=== PATIENT | female | born 1950 | race Caucasian/White ===

== ENCOUNTER 2017-05-28 10:05 | Emergency (ER) | payer MEDICARE, OTHER ==
--- NOTE | 2017-05-28 10:25 | ER Document Report ---
ED General - General Chief Complaint: Headache Stated Complaint: BLOOD PRESSURE ISSUE, VOMITING, SWEATING Time Seen by Provider: 05/28/17 10:25 Mode of Arrival: Ambulatory Information source: Patient Notes: 67-year-old female with a history of migraines has not had a headache this bad for a while. She got a gradual onset of a 2/5 headache while she was at her daughter's house in [place] yesterday which Tylenol resolved it and she went to bed at 10:00. This morning she woke up at 4:00 to go to the bathroom and the headache was 2/5 in by 7 AM the headache was 5/5 and she had to sit in the bathroom floor due to nausea sweating and she vomited. The headache is bandlike around the top of her head but she also feels in the posterior occipital which is the first place it started Tuesday afternoon. No recent illness, no chest pain, no shortness of breath, no abdominal pain, no dysuria, no fever. She has a history of rheumatoid arthritis, hypertension, total thyroidectomy, chronic back pain with recent procedure causing left leg nerve pain and she now takes Neurontin for that. PCP is Dr. Jamil in [place]. TRAVEL OUTSIDE OF THE [place] IN LAST 30 DAYS: No - Related Data Allergies/Adverse Reactions: codeine [Codeine] Allergy (Verified 05/28/17 10:31) Iodinated Contrast- Oral and IV Dye [IV Dye, Iodine Containing] Allergy ( Verified 05/28/17 10:31) nitroglycerin Allergy (Verified 05/28/17 10:31) terbinafine HCl [From Lamisil] Allergy (Verified 05/28/17 10:31) vicry sutures Allergy (Uncoded 05/28/17 10:31) Past Medical History - General Information source: Patient Last Menstrual Period: hyst - Social History Smoking Status: Never Smoker Frequency of alcohol use: None Drug Abuse: None Lives with: Family Family History: Reviewed & Not Pertinent - Past Medical History Cardiac Medical History: Reports: Hx Hypertension Neurological Medical History: Reports: Hx Migraine. Denies: Hx Seizures Malignancy Medical History: Reports: Hx Colorectal Cancer GI Medical History: Reports: Hx Gastroesophageal Reflux Disease Musculoskeltal Medical History: Reports Hx Arthritis Psychiatric Medical History: Reports: Hx Depression - since December of Son Past Surgical History: Reports: Hx Bowel Surgery, Hx Hysterectomy, Hx Orthopedic Surgery, Hx Thyroid Surgery Review of Systems - Review of Systems Constitutional: No symptoms reported EENT: No symptoms reported Cardiovascular: No symptoms reported Respiratory: No symptoms reported Gastrointestinal: See HPI Genitourinary: No symptoms reported Female Genitourinary: No symptoms reported Musculoskeletal: No symptoms reported Skin: No symptoms reported Hematologic/Lymphatic: No symptoms reported Neurological/Psychological: See HPI Physical Exam - Vital signs Vitals: Temp Pulse Resp BP Pulse Ox 97.4 F 65 16 143/89 H 96 05/28/17 10:19 05/28/17 10:19 05/28/17 10:19 05/28/17 10:19 05/28/17 10:19 Interpretation: Normal - General General appearance: Appears well, Alert - HEENT Head: Normocephalic, Atraumatic Eyes: Normal Conjunctiva: Normal Pupils: PERRL Pharynx: Normal Neck: Supple. No: Lymphadenopathy - Respiratory Respiratory status: No respiratory distress Chest status: Nontender Breath sounds: Normal Chest palpation: Normal - Cardiovascular Rhythm: Regular Heart sounds: Normal auscultation Murmur: No - Abdominal Inspection: Normal Distension: No distension Bowel sounds: Normal Tenderness: Nontender Organomegaly: No organomegaly - Back Back: Normal, Nontender. No: CVA tenderness - Extremities General upper extremity: Normal inspection, Nontender, Normal color, Normal ROM , Normal temperature General lower extremity: Normal inspection, Nontender, Normal color, Normal ROM , Normal temperature, Normal weight bearing. No: Patricia's sign - Neurological Neuro grossly intact: Yes Cognition: Normal Orientation: AAOx4 [place] Coma Scale Eye Opening: Spontaneous Jose Coma Scale Verbal: Oriented Jose Coma Scale Motor: Obeys Commands [place] Coma Scale Total: 15 Speech: Normal Motor strength normal: LUE, RUE, LLE, RLE Sensory: Normal - Psychological Associated symptoms: Normal affect, Normal mood - Skin Skin Temperature: Warm Skin Moisture: Dry Skin Color: Normal Skin irregularity: negative: Rash Course - Re-evaluation Re-evalutation: 05/28/17 10:[address] lynn for work up due to the sweating which she doesn't usually have with headaches. 05/28/17 11:16 CT scan is negative. I will add Toradol 30 mg IV. Her headache is level 3/5 at this time. 05/28/17 12:41 Headache is down to 1/5 she feels a lot better. Potassium is 3.1 and will order some potassium p.o. for her 05/28/17 12:54 - Vital Signs Vital signs: Temp Pulse Resp BP Pulse Ox 97.9 F 83 18 133/86 H 98 05/28/17 12:44 05/28/17 12:44 05/28/17 12:44 05/28/17 12:44 05/28/17 12:44 - Laboratory Result Diagrams: 05/28/17 11:35 05/28/17 11:35 Laboratory results interpreted by me: 05/28/17 05/28/17 11:35 11:35 RDW 14.8 H Seg Neutrophils % 81.1 H Potassium 3.1 L Carbon Dioxide 31 H Glucose 112 H Alkaline Phosphatase 140 H Discharge - Discharge Clinical Impression: Headache, Hypokalemia Condition: Good Disposition: HOME, SELF-CARE Additional Instructions: eat bannana daily to keep your potassium normal See Dr. Moffett on tuesday for follow-up Return to the emergency room any worsening of the symptoms Copy given to you of the imaging and lab work. Referral given to you of a neurologist in case his headaches persist Referrals: PRESLEY JAMIL MD [Primary Care Provider] - 05/30/17 TANGELA AUGUSTE MD [NO LOCAL MD] - Follow up as needed
[2017-05-28] MEDS ORDERED: DIPHENHYDRAMINE HCL 50 MG/ML VIAL IV ONE (10:34)
[2017-05-28] MEDS ORDERED: NORMAL SALINE 1000 ML 1,000 ML IV ONE (10:34)
[2017-05-28] MEDS ORDERED: PROCHLORPERAZINE EDISYLATE INJ 10 MG/2 ML VIAL IV ONE (10:34)
--- NOTE | 2017-05-28 10:56 | RADIOLOGY REPORT (SQ) ---
EXAM DESCRIPTION: CT HEAD WITHOUT COMPLETED DATE/TIME: 05/28/2017 10:42 am REASON FOR STUDY: headache COMPARISON: None. TECHNIQUE: Axial images acquired through the brain without intravenous contrast. Images reviewed wi th bone, brain and subdural windows. Additional sagittal and coronal reconstructions were generated. Images stored on PACS. All CT scanners at this facility use dose modulation, iterative reconstruction, and/or weight based d osing when appropriate to reduce radiation dose to as low as reasonably achievable (ALARA). [facility]: Dose Right [facility]: CareDose [facility]: Dose Right [facility]: Teradose 4D [facility]: Convergent Radiotherapy RADIATION DOSE: CT Rad equipment meets quality standard of care and radiation dose reduction techniq ues were employed. CTDIvol: 53.2 mGy. DLP: 991 mGy-cm. mGy. LIMITATIONS: None. FINDINGS: VENTRICLES: Normal size and contour. CEREBRUM: No masses. No hemorrhage. No midline shift. No evidence for acute infarction. Normal gra y/white matter differentiation. No areas of low density in the white matter. CEREBELLUM: No masses. No hemorrhage. No alteration of density. No evidence for acute infarction. EXTRAAXIAL SPACES: No fluid collections. No masses. ORBITS AND GLOBE: No intra- or extraconal masses. Normal contour of globe without masses. CALVARIUM: No fracture. PARANASAL SINUSES: No fluid or mucosal thickening. SOFT TISSUES: No mass or hematoma. OTHER: No other significant finding. IMPRESSION: NORMAL BRAIN CT WITHOUT CONTRAST. EVIDENCE OF ACUTE STROKE: NO. COMMENT: Quality ID # [id number]: Final reports with documentation of one or more dose reduction techniques (e.g., Automated exposure control, adjustment of the mA and/or kV according to patient size, use of iterative reconstruction technique) TECHNICAL DOCUMENTATION: JOB ID: [id number] [employer]- All Rights Reserved Reading location - IP/workstation name: [email or web address]
[2017-05-28] MEDS ORDERED: KETOROLAC TROMETHAMINE INJ/PF 30 MG/1 ML SDV IV ONE (11:16)
[2017-05-28 12:16] LABS: ABSOLUTE LYMPHOCYTES (AUTO) 0.9 10^3/uL (0.5-4.7); ABSOLUTE MONOCYTES (AUTO) 0.2 10^3/uL (0.1-1.4); ABSOLUTE NEUT (AUTO) 4.8 10^3/uL (1.7-8.2); APPEARANCE,URINE CLEAR; BASOPHILS % (AUTO) 0.6 % (0-2); BILIRUBIN,URINE NEGATIVE (NEGATIVE); COLOR,URINE STRAW; EOSINOPHILS % (AUTO) 0.3 % (0-6); GLUCOSE, URINE NEGATIVE (NEGATIVE); HEMATOCRIT 40.8 % (36.0-47.0); HEMOGLOBIN 13.8 g/dL (12.0-15.5); KETONES,URINE NEGATIVE (NEGATIVE); LEUKOCYTE ESTERASE,URINE NEGATIVE (NEGATIVE); LYMPHOCYTES % (AUTO) 14.8 % (13-45); MEAN CORPUSCULAR HEMOGLOBIN 32.3 pg (27.0-33.4); MEAN CORPUSCULAR HGB CONC 33.8 g/dL (32.0-36.0); MEAN CORPUSCULAR VOLUME 96 fl (80-97); MONOCYTES % (AUTO) 3.2 % (3-13); NITRITE,URINE NEGATIVE (NEGATIVE); PLATELET COUNT 225 10^3/uL (150-450); PROTEIN,URINE NEGATIVE (NEGATIVE); RED BLOOD COUNT 4.26 10^6/uL (3.72-5.28); RED CELL DISTRIBUTION WIDTH 14.8 % (11.5-14.0); SEGMENTED NEUTROPHILS % (AUTO) 81.1 % (42-78); TOTAL CELLS COUNTED % (AUTO) 100 %; URINE SPECIFIC GRAVITY 1.008; UROBILINOGEN,URINE NEGATIVE mg/dL (<2.0); WHITE BLOOD COUNT 5.9 10^3/uL (4.0-10.5)
[2017-05-28 12:40] LABS: ALANINE AMINOTRANSFERASE 26 U/L (9-52); ALKALINE PHOSPHATASE 140 U/L (38-126); ANION GAP 7 (5-19); ASPARTATE AMINO TRANSFERASE 16 U/L (14-36); BILIRUBIN,DIRECT 0.1 mg/dL (0.0-0.4); BILIRUBIN,TOTAL 0.5 mg/dL (0.2-1.3); BLOOD UREA NITROGEN 8 mg/dL (7-20); CALCIUM 8.7 mg/dL (8.4-10.2); CARBON DIOXIDE 31 mmol/L (22-30); CHLORIDE 104 mmol/L (98-107); GLUCOSE 112 mg/dL (75-110); POTASSIUM 3.1 mmol/L (3.6-5.0); SODIUM 142.3 mmol/L (137-145); TOTAL PROTEIN 6.7 g/dL (6.3-8.2)
[2017-05-28 12:45] VITALS: BP 133/86
[2017-05-28] MEDS ORDERED: POTASSIUM CHLORIDE 20 MEQ/15 ML UDCUP PO ONE (12:55)
== END 2017-05-28 13:12 | disposition home or self-care (01) ==
LOC: ER 10:05
DX: R51 Headache (principal); E87.6 Hypokalemia; R61 Generalized hyperhidrosis; R11.2 Nausea with vomiting, unspecified; M06.9 Rheumatoid arthritis, unspecified; I10 Essential (primary) hypertension; Z98.890 Other specified postprocedural states
CPT/HCPCS: 99284; 96361; 96374; 96375; 36415; 85025; 80053; 81001; 70450; J1200; J1885; A9270; J0780; J7030

== ENCOUNTER 2018-05-23 18:11 | Emergency (ER) | payer MEDICARE, OTHER ==
--- NOTE | 2018-05-23 19:54 | ER Document Report ---
ED Fall - General Chief Complaint: Fall Stated Complaint: FALL/LEFT KNEE PAIN Time Seen by Provider: 05/23/18 19:36 Primary Care Provider: PRESLEY SMITH MD [NO LOCAL MD] - Follow up as needed Mode of Arrival: Wheelchair Information source: Patient Notes: 68-year-old female presented to ED for complaint of left knee pain and left arm pain after she fell about 5:00. She states she just come home from vacation and the dog ran out to greet her and she tripped over the dog falling down. Patient is alert oriented respirations regular and unlabored speaking in full sentences and is in a wheelchair. TRAVEL OUTSIDE OF THE [place] IN LAST 30 DAYS: No - HPI Occurred: Just prior to arrival Where: Home, Indoors Context: Tripped - Over the dog Associated symptoms: None Location of injury/pain: Knee - Pain swelling bruising, Other - Laceration to left arm Quality of pain: Achy, Sharp Severity: Moderate Pain Level: 4 - Related data Allergies/Adverse Reactions: codeine [Codeine] Allergy (Verified 05/23/18 18:12) Iodinated Contrast- Oral and IV Dye [IV Dye, Iodine Containing] Allergy (V erified 05/23/18 18:12) nitroglycerin Allergy (Verified 05/23/18 18:12) terbinafine HCl [From Lamisil] Allergy (Verified 05/23/18 18:12) vicry sutures Allergy (Uncoded 05/23/18 18:12) Past Medical History - General Information source: Patient - Social History Smoking Status: Never Smoker Frequency of alcohol use: None Drug Abuse: None Lives with: Alone Family History: Reviewed & Not Pertinent - Past Medical History Cardiac Medical History: Reports: Hx Hypertension Pulmonary Medical History: Reports: None EENT Medical History: Reports: None Neurological Medical History: Reports: Hx Migraine Endocrine Medical History: Reports: None Renal/ Medical History: Reports: Other - Prolapsed uterus Malignancy Medical History: Reports: Hx Colorectal Cancer GI Medical History: Reports: Hx Gastroesophageal Reflux Disease Musculoskeletal Medical History: Reports Hx Arthritis Psychiatric Medical History: Reports: Hx Depression - since December of Son Past Surgical History: Reports: Hx Bowel Surgery, Hx Hysterectomy, Hx Orthopedic Surgery, Hx Thyroid Surgery Review of Systems - Review of Systems Constitutional: No symptoms reported EENT: No symptoms reported Cardiovascular: No symptoms reported Respiratory: No symptoms reported Gastrointestinal: No symptoms reported Genitourinary: No symptoms reported Female Genitourinary: No symptoms reported Musculoskeletal: Joint pain, Joint swelling - Left knee pain swelling and bruising Skin: Other - Superficial scratch to the left arm Hematologic/Lymphatic: No symptoms reported Neurological/Psychological: No symptoms reported -: Yes All other systems reviewed and negative Physical Exam - Vital signs Vitals: Temp Pulse Resp BP Pulse Ox 98.3 F 104 H 16 117/86 H 96 05/23/18 18:31 05/23/18 18:31 05/23/18 18:31 05/23/18 18:31 05/23/18 18:31 Interpretation: Normal - General General appearance: Appears well, Alert - HEENT Head: Normocephalic, Atraumatic Eyes: Normal Pupils: PERRL - Respiratory Respiratory status: No respiratory distress Chest status: Nontender Breath sounds: Normal Chest palpation: Normal - Cardiovascular Rhythm: Regular Heart sounds: Normal auscultation Murmur: No - Abdominal Inspection: Normal Distension: No distension Bowel sounds: Normal Tenderness: Nontender Organomegaly: No organomegaly - Back Back: Normal, Nontender - Extremities General upper extremity: Normal inspection, Nontender, Normal color, Normal ROM, Normal temperature General lower extremity: Normal temperature. No: Patricia's sign Knee: Tender, Ecchymosis, Pain with ROM, Patellar tendon intact, Tender joint line. No: Popliteal fossa tender - Neurological Neuro grossly intact: Yes Cognition: Normal Orientation: AAOx4 Jose Coma Scale Eye Opening: Spontaneous [place] Coma Scale Verbal: Oriented Jose Coma Scale Motor: Obeys Commands [place] Coma Scale Total: 15 Speech: Normal Motor strength normal: LUE, RUE, LLE, RLE Sensory: Normal - Psychological Associated symptoms: Normal affect, Normal mood - Skin Skin Temperature: Warm Skin Moisture: Dry Skin Color: Normal, Ecchymosis Skin irregularity: Laceration - Superficial laceration to the left arm Location of irregularity: Extremities - Left knee ecchymosis superficial laceration/to left arm Irregularity with: Swelling, Tenderness Course - Re-evaluation Re-evalutation: 05/23/18 21:[address] Todd with the results of the x-ray. He stated a CT of the knee would be completed. 05/23/18 21:50 CT results shows a moderate tricompartmental degenerative change with tricompartmental narrowing and spur formation there is no evidence of joint effusion there is no evidence for an acute fracture. We will treat patient with a knee immobilizer and discharged home to follow-up with orthopedics. Patient refused prescription for narcotics states she cannot take NSAIDs and she will take Tylenol. Patient has been given instructions to elevate and ice the knee and follow-up with orthopedics. - Vital Signs Vital signs: Temp Pulse Resp BP Pulse Ox 98.3 F 104 H 16 117/86 H 96 05/23/18 18:31 05/23/18 18:31 05/23/18 18:31 05/23/18 18:31 05/23/18 18:31 - Diagnostic Test Radiology reviewed: Image reviewed, Reports reviewed Discharge - Discharge Clinical Impression: Contusion of left knee Qualifiers: Encounter type: initial encounter Qualified Code(s): S80.02XA - Contusion of left knee, initial encounter Fall Qualifiers: Encounter type: initial encounter Qualified Code(s): W19.XXXA - Unspecified fall, initial encounter Condition: Stable Disposition: HOME, SELF-CARE Additional Instructions: Arthritis Your symptoms are due to arthritis. Arthritis is an inflammation of the joints. There are many types -- osteoarthritis (due to "wear and tear"), auto- immmune arthritis (such as rheumatoid, lupus, Harry's, and others), and crystal-induced arthritis (such as gout and pseudogout). The physician's examination, combined with laboratory tests, will determine the cause of your arthritis. All types of arthritis are treated with antiinflammatory medications. Other medication may be required for special types of arthritis, or if your problem does not respond to the antiinflammatory medicine. Local warmth may be helpful. Move the involved joints through the full range of motion daily. Mild exercise is usually still possible for most persons with arthritis (ask your physician). Swimming provides good exercise without damaging the joints. Contact the physician if you are worsening in any way. CONTUSION: Your injury has resulted in a contusion -- a crushing of the deep tissues. No injury to important structures was detected during the physician's exam. Contusions vary in the amount of pain they cause, and in the length of time required for healing. Typically, the area will become bruised, and will remain painful to touch for two or three weeks. However, most patients are back to working and playing within a few days. After the initial period of rest and cold-packs, your symptoms (together with the doctor's recommendations) will determine how rapidly you can get back to full activity. Usually this means "do what feels okay, but don't do things that hurt." If re-examination was recommended, it's important to follow up as instructed. Call the doctor or return any time if pain increases, if swelling becomes severe, if you develop numbness or weakness in an injured extremity, or if any other alarming symptoms occur. USE OF TYLENOL (ACETAMINOPHEN): Acetaminophen may be taken for pain relief or fever control. It's much safer than aspirin, offering a wider range of "safe" dosages. It is safe during . Some brand names are Tylenol, Panadol, Datril, Anacin 3, Tempra, and Liquiprin. Acetaminophen can be repeated every four hours. The following are maximum recommended dosages: WEIGHT Dose Drops Elixir Chewable(80mg) (LBS.) drprs=droppers tsp=teaspoon 6 40 mg 0.4 ml (1/2) 6-11 80 mg 0.8 ml (full) tsp 1 tab 12-16 120 mg 1 1/2 drprs 3/4 tsp 1 1/2 tabs 17-23 160 mg 2 drprs 1 tsp 2 tabs 24-30 240 mg 3 drprs 1 1/2 tsp 3 tabs 30-35 320 mg 2 tsp 4 tabs 36-41 360 mg 2 1/4 tsp 4 1/2 tabs 42-47 400 mg 2 1/2 tsp 5 tabs 48-53 480 mg 3 tsp 6 tabs 54-59 520 mg 3 1/4 tsp 6 1/2 tabs 60-64 560 mg 3 1/2 tsp 7 tabs 65-70 600 mg 3 3/4 tsp 7 1/2 tabs 71-76 640 mg 4 tsp 8 tabs 77-82 720 mg 4 1/2 tsp 9 tabs 83-88 800 mg 5 tsp 10 tabs >89 pounds or adults 650 mg to 900 mg Acetaminophen can be repeated every four hours. Maximum dose not to exceed 4000 mg a day. These maximum recommended dosages are slightly higher than the dosages written on the product container, but these dosages are very safe and below the toxic dosage for acetaminophen. KNEE IMMOBILIZING SPLINT: The knee immobilizing splint will protect the injury while healing begins. This type of splint does not allow the knee to bend at all. No running or sports will be possible. If the splint allows painfree walking, it's giving adequate protection. If there is still significant pain, crutches may be needed as well. Don't do anything that hurts. Adjusted the splint, if necessary. The stiffeners on the sides are attached with Velcro, so they can be easily moved to adjust for thigh and calf size. If you need help with these adjustments, come back. You will lose muscle strength in the thigh while using this splint. The doctor will advise you if it's safe to do isometric knee exercises while you use it. ICE & ELEVATION: Apply ice packs frequently against the painful area. Many different schedules are recommended, such as "20 minutes on, 20 minutes off" or "one hour ice, two hours rest." If you need to work, you may need to go longer between ice treatments. You should plan to have the area ice packed AT LEAST one-fourth of the time. The ice should be applied over the wrap, tape, or splint, or over a layer of cloth -- not directly against the skin. Some ice bags have a built-in cloth and can be put directly on the skin. Your injured part should be elevated as much as possible over the next 48 hours. Try to keep the injury above the level of the heart. Avoid use of the injured area. Elevation and rest will decrease the swelling. FOLLOW-UP CARE: If you have been referred to a physician for follow-up care, call the physicians office for an appointment as you were instructed or within the next two days. If you experience worsening or a significant change in your symptoms, notify the physician immediately or return to the Emergency Department at any time for re-evaluation. Referrals: PRESLEY SMITH MD [NO LOCAL MD] - Follow up as needed [facility] [Provider Group] - Follow up as needed
--- NOTE | 2018-05-23 20:18 | RADIOLOGY REPORT (SQ) ---
EXAM DESCRIPTION: Left knee Views: 4 CLINICAL HISTORY: 68 years Female, fall pain COMPARISON: None. FINDINGS: There are mild chronic degenerative changes in the medial and lateral joint spaces. Mild irregularity is also seen along the posterior margin of patella. No significant joint effusion. Overall alignment is anatomic. On the oblique view, there is a subtle lucency extending through the posterolateral portion of the lateral tibial plateau which may represent a nondisplaced fracture. No displaced fractures are identified. IMPRESSION: 1. Suspicious lucency through the lateral tibial plateau seen on only one view, possibly a nondisplaced fracture. Consider CT of the knee. 2. Mild chronic degenerative changes.
--- NOTE | 2018-05-23 21:30 | RADIOLOGY REPORT (SQ) ---
EXAM DESCRIPTION: CT LOWER EXTREMITY WITH IV CONTRAST COMPLETED DATE/TME: 05/23/2018 20:53 CLINICAL HISTORY: 68 years, Female, possible left tibial plateau fracture COMPARISON: Plain films of today's date TECHNIQUE: 325 Images stored on PACS. All CT scanners at this facility use dose modulation, iterative reconstruction, and/or weight based dosing when appropriate to reduce radiation dose to as low as reasonably achievable (ALARA). [facility]: Dose Right [facility]: CareDose [facility]: Dose Right [facility]: Teradose 4D [facility]: [employer]aptee LIMITATIONS: None. FINDINGS: Moderate tricompartmental degenerative change with tricompartmental narrowing and spur formation. There is no evidence for joint effusion. No CT evidence for acute fracture. Findings on plain film may have related to bony spur formation. The myofascial planes are preserved. IMPRESSION: Tricompartmental degenerative change. No acute osseous abnormality. TECHNICAL DOCUMENTATION: Quality ID # [id number]: Final reports with documentation of one or more dose reduction techniques (e.g., Automated exposure control, adjustment of the mA and/or kV according to patient size, use of iterative reconstruction technique) copyright 2011 [employer]- All Rights Reserved
[2018-05-23] MEDS ORDERED: HYDROCODONE/ACETAMINOPHEN 5-325 MG (6 TAB/ER DISP) PO PRN (21:56)
[2018-05-23 22:06] VITALS: BP 121/79
== END 2018-05-23 22:06 | disposition home or self-care (01) ==
LOC: ER 18:11
DX: S41.112A Laceration without foreign body of left upper arm, initial encounter (principal); S80.02XA Contusion of left knee, initial encounter; M79.602 Pain in left arm; W01.0XXA Fall on same level from slipping, tripping and stumbling without subsequent striking against object, initial encounter; Y92.007 Garden or yard of unspecified non-institutional (private) residence as the place of occurrence of the external cause; Z88.6 Allergy status to analgesic agent
CPT/HCPCS: 99284; 73564; 73701; L1830; A9270

== ENCOUNTER 2018-10-06 09:59 | Emergency (ER) | payer MEDICARE, OTHER ==
--- NOTE | 2018-10-06 11:23 | RADIOLOGY REPORT (SQ) ---
EXAM DESCRIPTION: KNEE RIGHT 4 VIEWS COMPLETED DATE/TIME: 10/06/2018 11:14 am REASON FOR STUDY: bone tenderness COMPARISON: None. NUMBER OF VIEWS: Four views. TECHNIQUE: AP, lateral, and both oblique radiographic images acquired of the right knee. LIMITATIONS: None. FINDINGS: MINERALIZATION: Normal. BONES: No acute fracture or dislocation. No worrisome bone lesions. JOINT: No effusion. Small nonspecific knee joint effusion. Moderate tricompartmental arthrosis. SOFT TISSUES: No soft tissue swelling. No radio-opaque foreign body. OTHER: No other significant finding. IMPRESSION: No fracture or dislocation of the right knee. There is moderate tricompartmental arthro sis and a small nonspecific knee joint effusion. TECHNICAL DOCUMENTATION: JOB ID: [id number] [employer]- All Rights Reserved Reading location - IP/workstation name: [email or web address]
[2018-10-06] MEDS ORDERED: OXYCODONE-ACETAMINOPHEN 5-325 MG TABLET PO ONE (11:41)
--- NOTE | 2018-10-06 11:44 | ER Document Report ---
ED Medical Screen (RME) - General Chief Complaint: Leg Pain Stated Complaint: RIGHT KNEE SWELLING Time Seen by Provider: 10/06/18 11:41 Primary Care Provider: DEJAN CAPPS MD [Primary Care Provider] - Follow up as needed Mode of Arrival: Ambulatory Information source: Patient Notes: Patient presents complaining of right knee pain that woke her up at 1:00 this m orning. Patient states pain radiates into the right lower extremity as well. Patient does report a history of rheumatoid arthritis. Patient denies any injury to the knee. hx: HTN, RA I have greeted and performed a rapid initial assessment of this patient. A comprehensive ED assessment and evaluation of the patient, analysis of test results and completion of the medical decision making process will be conducted by additional ED providers. TRAVEL OUTSIDE OF THE [place] IN LAST 30 DAYS: No - Related Data Allergies/Adverse Reactions: codeine [Codeine] Allergy (Verified 10/06/18 11:14) Iodinated Contrast Media [IV Dye, Iodine Containing] Allergy (Verified 10/06/18 11:14) nitroglycerin Allergy (Verified 10/06/18 11:14) terbinafine HCl [From Lamisil] Allergy (Verified 10/06/18 11:14) vicry sutures Allergy (Uncoded 10/06/18 10:00) Past Medical History - Social History Chew tobacco use (# tins/day): No Frequency of alcohol use: None Drug Abuse: None - Past Medical History Cardiac Medical History: Reports: Hx Hypertension Neurological Medical History: Reports: Hx Migraine. Denies: Hx Seizures Renal/ Medical History: Denies: Hx Peritoneal Dialysis Malignancy Medical History: Reports: Hx Colorectal Cancer GI Medical History: Reports: Hx Gastroesophageal Reflux Disease Musculoskeltal Medical History: Reports Hx Arthritis Psychiatric Medical History: Reports: Hx Depression - since December of S on Past Surgical History: Reports: Hx Bowel Surgery, Hx Hysterectomy, Hx Orthopedic Surgery - R knuckles replaced, feet, Hx Thyroid Surgery - thyroidectomy Physical Exam - Vital signs Vitals: Temp Pulse Resp BP Pulse Ox 97.7 F 70 18 125/79 96 10/06/18 10:13 10/06/18 10:13 10/06/18 10:13 10/06/18 10:13 10/06/18 10:13 - General Notes: Right knee tenderness with joint effusion. Tenderness extends to right calf area Course - Vital Signs Vital signs: Temp Pulse Resp BP Pulse Ox 97.7 F 70 18 125/79 96 10/06/18 10:13 10/06/18 10:13 10/06/18 10:13 10/06/18 10:13 10/06/18 10:13 Doctor's Discharge - Discharge Referrals: DEJAN CAPPS MD [Primary Care Provider] - Follow up as needed
[2018-10-06 14:08] VITALS: BP 107/75
--- NOTE | 2018-10-06 16:07 | XCELERA REPORT ---
[address] [facility] [address] Lower Extremity Venous Evaluation Procedure: Color flow and duplex imaging of the veins of the right lower extremity as well as the left Common Femoral vein. Right Sided Venous Evaluation Normal vessel filling wall to wall, compression and augmentation as well as Colour flow down to the infrageniculate veins. Left Sided Venous Evaluation The left common femoral vein is fully compressible. Spontaneous and phasic flow is present in the left common femoral vein. Interpretation Summary No duplex evidence of DVT or obstruction in the right lower extremity nor in the left Common Femoral vein. Name: PRESLEY DRAKE Age: 68 yrs Gender: Female : 1950 Patient Status: Emergency Patient Location: ER Study Date: 10/06/2018 12:00 PM Reason For Study: RT KNEE PAIN Ordering Physician: MANUEL SANDOVAL Performed By: Allan Palomino : MANUEL SANDOVAL > Satinder Germain
--- NOTE | 2018-10-08 10:37 | ER Document Report ---
Entered by ABIGAIL RIBEIRO SCRIBE 10/06/18 1238 Acting as scribe for:MANUEL SANDOVAL MD ED General - General Chief Complaint: Leg Pain Stated Complaint: RIGHT KNEE SWELLING Time Seen by Provider: 10/06/18 11:41 Primary Care Provider: DEJAN CAPPS MD [Primary Care Provider] - Follow up as needed (Return to the emergency department the next 24 hours if symptoms are not improving or if any development of fevers or chills.) Mode of Arrival: Ambulatory Notes: Patient is a 68-year-old female presenting to the emergency department complaining of right knee pain. Patient states that at about 0 100 this morning she woke up from sleep with knee pain. Patient states that she was not able to go back to sleep and it progressed until about 0730,it was then unbearable, she could no longer walk. Patient denies experiencing any fever, being ill recently, working outside at all yesterday, having any cuts or lacerations recently. TRAVEL OUTSIDE OF THE [place] IN LAST 30 DAYS: No - Related Data Allergies/Adverse Reactions: codeine [Codeine] Allergy (Verified 10/06/18 11:14) Iodinated Contrast Media [IV Dye, Iodine Containing] Allergy (Verified 10/06/18 11:14) nitroglycerin Allergy (Verified 10/06/18 11:14) terbinafine HCl [From Lamisil] Allergy (Verified 10/06/18 11:14) vicry sutures Allergy (Uncoded 10/06/18 10:00) Past Medical History - General Information source: Patient - Social History Smoking Status: Never Smoker Chew tobacco use (# tins/day): No Frequency of alcohol use: None Drug Abuse: None Family History: Reviewed & Not Pertinent Patient has suicidal ideation: No Patient has homicidal ideation: No - Past Medical History Cardiac Medical History: Reports: Hx Hypertension Neurological Medical History: Reports: Hx Migraine. Denies: Hx Seizures Renal/ Medical History: Denies: Hx Peritoneal Dialysis Malignancy Medical History: Reports: Hx Colorectal Cancer GI Medical History: Reports: Hx Gastroesophageal Reflux Disease Musculoskeletal Medical History: Reports Hx Arthritis Psychiatric Medical History: Reports: Hx Depression - since December of Son Past Surgical History: Reports: Hx Bowel Surgery, Hx Hysterectomy, Hx Orthopedic Surgery - R knuckles replaced, feet, Hx Thyroid Surgery - thyroidectomy Review of Systems - Review of Systems Constitutional: No symptoms reported. denies: Fever EENT: No symptoms reported Cardiovascular: No symptoms reported Respiratory: No symptoms reported Gastrointestinal: No symptoms reported Genitourinary: No symptoms reported Female Genitourinary: No symptoms reported Musculoskeletal: See HPI, Other - Right knee pain Skin: No symptoms reported Hematologic/Lymphatic: No symptoms reported Neurological/Psychological: No symptoms reported -: Yes All other systems reviewed and negative Physical Exam - Vital signs Vitals: Temp Pulse Resp BP Pulse Ox 97.7 F 70 18 125/79 96 10/06/18 10:13 10/06/18 10:13 10/06/18 10:13 10/06/18 10:13 10/06/18 10:13 - Notes Notes: Physical Exam: General: Alert, appears well. HEENT: Normocephalic. Atraumatic. PERRL. Extraocular movements intact. Oropharynx clear. Neck: Supple. Non-tender. Respiratory: No respiratory distress. Clear and equal breath sounds bilaterally. Cardiovascular: Regular rate and rhythm. Abdominal: Normal Inspection. Non-tender. No distension. Normal Bowel Sounds. Back: Non-tender. No deformity or step off. Extremities: Moves all four extremities. Upper extremities: Normal inspection. Normal ROM. Lower extremities: Bursa inflammation present over the right knee. No erythema present, no temperature difference compared to the other Extremity. Painful ROM. Neurological: Normal cognition. AAOx4. Normal speech. Psychological: Normal affect. Normal Mood. Skin: Warm. Dry. Normal color. Course - Re-evaluation Re-evalutation: 10/06/18 12:40 Patient has onset of right knee pain with mild joint effusion and evidence of bursitis no significant warmth difference or erythema, no fevers and history of rheumatoid arthritis. She has not had any recent traumas falls that she is aware of. No cuts or scrapes to her skin recently. Discussed with patient joint aspiration recommended at this time as that is the only way to r/o infection. Patient declined and stated if symptoms are not improving she would come back. I did discuss strict return precautions if symptoms not improving any development of fever or chills in the next 24 hours to return to the emergency department immediately for further work-up and need for joint aspiration. Patient verbalized understood and agreed to plan. - Vital Signs Vital signs: Temp Pulse Resp BP Pulse Ox 98.5 F 74 20 107/75 96 10/06/18 14:06 10/06/18 14:06 10/06/18 14:06 10/06/18 14:06 10/06/18 10:13 Discharge - Discharge Clinical Impression: Right knee pain Qualifiers: Chronicity: acute Qualified Code(s): M25.561 - Pain in right knee Condition: Good Disposition: HOME, SELF-CARE Instructions: Rheumatoid Arthritis ([facility]) Prescriptions: Oxycodone HCl/Acetaminophen [Percocet 5-325 mg Tablet] 1 tab PO ASDIR PRN #10 tablet PRN Reason: Referrals: DEJAN CAPPS MD [Primary Care Provider] - Follow up as needed (Return to the emergency department the next 24 hours if symptoms are not improving or if any development of fevers or chills.) I personally performed the services described in the documentation, reviewed and edited the documentation which was dictated to the scribe in my presence, and it accurately records my words and actions.
== END 2018-10-06 14:19 | disposition home or self-care (01) ==
LOC: ER 09:59
DX: M25.561 Pain in right knee (principal); I10 Essential (primary) hypertension; Z88.6 Allergy status to analgesic agent; Z90.710 Acquired absence of both cervix and uterus; Z85.038 Personal history of other malignant neoplasm of large intestine
CPT/HCPCS: 99284; 93971 ×2; 73564; A9270

== ENCOUNTER 2018-12-21 11:28 | Emergency (ER) | payer MEDICARE, OTHER ==
--- NOTE | 2018-12-21 11:42 | ER Document Report ---
ED Medical Screen (RME) - General Chief Complaint: Fall Stated Complaint: LEFT KNEE PAIN Time Seen by Provider: 12/21/18 11:39 Primary Care Provider: DEJAN CAPPS MD [Primary Care Provider] - Follow up as needed Mode of Arrival: Ambulatory Information source: Patient Notes: 68-year-old female presents to ED for pain in her left thigh knee lower leg and ankle. She states she fell about a month ago and the pain started couple days ago in her thigh and now it is worked its way down to her knee lower leg and ankle. She states she called her doctor and they told that she needed to come over to the emergency room to get this all checked out. She states the pain is about a 3 she does have some bruises on her lower leg near her ankle and some on her knee. She does have pain behind the left knee as well as the front of the lower extremity. And her right knee. She states medical history she has severe rheumatoid arthritis. She had a thyroidectomy and a hysterectomy and she had to have surgery to replace the third fourth and fifth knuckle on the right hand I have greeted and performed a rapid initial assessment of this patient. A comprehensive ED assessment and evaluation of the patient, analysis of test results and completion of medical decision making process will be conducted by an additional ED providers. TRAVEL OUTSIDE OF THE [place] IN LAST 30 DAYS: No - Related Data Allergies/Adverse Reactions: codeine [Codeine] Allergy (Verified 12/21/18 11:39) Iodinated Contrast Media [IV Dye, Iodine Containing] Allergy (Verified 12/21/18 11:39) nitroglycerin Allergy (Verified 12/21/18 11:39) terbinafine HCl [From Lamisil] Allergy (Verified 12/21/18 11:39) vicry sutures Allergy (Uncoded 12/21/18 11:39) Past Medical History - Past Medical History Cardiac Medical History: Reports: Hx Hypertension Neurological Medical History: Reports: Hx Migraine. Denies: Hx Seizures Renal/ Medical History: Denies: Hx Peritoneal Dialysis Malignancy Medical History: Reports: Hx Colorectal Cancer GI Medical History: Reports: Hx Gastroesophageal Reflux Disease Musculoskeltal Medical History: Reports Hx Arthritis Psychiatric Medical History: Reports: Hx Depression - since December of Son Past Surgical History: Reports: Hx Bowel Surgery, Hx Hysterectomy, Hx Orthopedic Surgery - R knuckles replaced, feet, Hx Thyroid Surgery - thyroidectomy Physical Exam - Vital signs Vitals: Temp Pulse Resp BP Pulse Ox 97.9 F 101 H 18 117/80 96 12/21/18 11:37 12/21/18 11:37 12/21/18 11:37 12/21/18 11:37 12/21/18 11:37 Course - Vital Signs Vital signs: Temp Pulse Resp BP Pulse Ox 97.9 F 101 H 18 117/80 96 12/21/18 11:37 12/21/18 11:37 12/21/18 11:37 12/21/18 11:37 12/21/18 11:37 Doctor's Discharge - Discharge Referrals: DEJAN CAPPS MD [Primary Care Provider] - Follow up as needed
--- NOTE | 2018-12-21 12:26 | RADIOLOGY REPORT (SQ) ---
EXAM DESCRIPTION: ANKLE LEFT COMPLETE COMPLETED DATE/TIME: 12/21/2018 12:04 pm REASON FOR STUDY: pain andfall COMPARISON: None. NUMBER OF VIEWS: Three views. TECHNIQUE: AP, lateral, and oblique without weight bearing radiographic images acquired of the left ankle. LIMITATIONS: None. FINDINGS: MINERALIZATION: Normal. BONES: No acute fracture or dislocation. No worrisome bone lesions. No significant osteophytes. JOINTS: No effusions. SOFT TISSUES: No foreign body. Ossification along the plantar surface of the foot. OTHER: No other significant finding. IMPRESSION: No acute fracture. TECHNICAL DOCUMENTATION: JOB ID: [id number] [employer]- All Rights Reserved Reading location - IP/workstation name: [email or web address]
--- NOTE | 2018-12-21 12:27 | RADIOLOGY REPORT (SQ) ---
EXAM DESCRIPTION: KNEE BILATERAL 1-2 VIEWS COMPLETED DATE/TIME: 12/21/2018 12:04 pm REASON FOR STUDY: pain and injury COMPARISON: None. NUMBER OF VIEWS: Two views right knee. Two views left knee. TECHNIQUE: AP and lateral radiographic images acquired of the right and left knee. LIMITATIONS: None. FINDINGS: MINERALIZATION: Normal. BONES: No acute fracture or dislocation. No worrisome bone lesions. Degenerative changes. JOINT: Joint effusion on the left with possible quadriceps avulsion. SOFT TISSUES: No soft tissue swelling. No radio-opaque foreign body. OTHER: No other significant finding. IMPRESSION: Degenerative changes in the right knee. Joint effusion on the left with bone fragments suggesting potential quadriceps avulsion. COMMENT: Recommend MRI. TECHNICAL DOCUMENTATION: JOB ID: [id number] [employer]- All Rights Reserved Reading location - IP/workstation name: [email or web address]
--- NOTE | 2018-12-21 14:09 | ER Document Report ---
ED General - General Chief Complaint: Leg Pain Stated Complaint: LEFT KNEE PAIN Time Seen by Provider: 12/21/18 11:39 Primary Care Provider: DEJAN CAPPS MD [Primary Care Provider] - Follow up as needed Mode of Arrival: Ambulatory TRAVEL OUTSIDE OF THE [place] IN LAST 30 DAYS: No - HPI Notes: Patient tripped approximately 4 weeks ago on item in the ground. Since that time she has been having left knee pain left ankle pain. She has noticed swelling since that time in her left lower extremity so she comes to the emergency department. No recent traumas falls or fevers or illnesses since that time. No chest pain or shortness of breath - Related Data Allergies/Adverse Reactions: codeine [Codeine] Allergy (Verified 12/21/18 11:39) Iodinated Contrast Media [IV Dye, Iodine Containing] Allergy (Verified 12/21/18 11:39) nitroglycerin Allergy (Verified 12/21/18 11:39) terbinafine HCl [From Lamisil] Allergy (Verified 12/21/18 11:39) vicry sutures Allergy (Uncoded 12/21/18 11:39) Past Medical History - General Information source: Patient - Social History Smoking Status: Never Smoker Chew tobacco use (# tins/day): No Frequency of alcohol use: None Drug Abuse: None Family History: Reviewed & Not Pertinent Patient has suicidal ideation: No Patient has homicidal ideation: No - Past Medical History Cardiac Medical History: Reports: Hx Hypertension Neurological Medical History: Reports: Hx Migraine. Denies: Hx Seizures Renal/ Medical History: Denies: Hx Peritoneal Dialysis Malignancy Medical History: Reports: Hx Colorectal Cancer GI Medical History: Reports: Hx Gastroesophageal Reflux Disease Musculoskeletal Medical History: Reports Hx Arthritis Psychiatric Medical History: Reports: Hx Depression - since December of Son Past Surgical History: Reports: Hx Bowel Surgery, Hx Hysterectomy, Hx Orthopedic Surgery - R knuckles replaced, feet, Hx Thyroid Surgery - thyroidectomy Review of Systems - Review of Systems Constitutional: No symptoms reported EENT: No symptoms reported Cardiovascular: No symptoms reported Respiratory: No symptoms reported Gastrointestinal: No symptoms reported Genitourinary: No symptoms reported Female Genitourinary: No symptoms reported Musculoskeletal: See HPI Skin: No symptoms reported Hematologic/Lymphatic: No symptoms reported Neurological/Psychological: No symptoms reported Physical Exam - Vital signs Vitals: Temp Pulse Resp BP Pulse Ox 97.9 F 101 H 18 117/80 96 12/21/18 11:37 12/21/18 11:37 12/21/18 11:37 12/21/18 11:37 12/21/18 11:37 - General General appearance: Appears well, Alert - HEENT Head: Normocephalic, Atraumatic - Respiratory Respiratory status: No respiratory distress Chest status: Nontender Breath sounds: Normal Chest palpation: Normal - Cardiovascular Rhythm: Regular Heart sounds: Normal auscultation Murmur: No - Extremities General upper extremity: Normal inspection, Normal ROM General lower extremity: Other - Patient need to ambulate. Full range of motion of knee with minor tenderness. Small amount of bruising lateral and medial aspect of left lower extremity malleoli. Course - Re-evaluation Re-evalutation: 12/21/18 14:06 Negative for DVT. Patient does have bone fragments read by radiologist as possible quadriceps avulsion. Will refer to orthopedics advised to have appointment with the next 3 to 5 days. 12/21/18 14:07 - Vital Signs Vital signs: Temp Pulse Resp BP Pulse Ox 97.9 F 101 H 18 117/80 96 12/21/18 11:37 12/21/18 11:37 12/21/18 11:37 12/21/18 11:37 12/21/18 11:37 Discharge - Discharge Clinical Impression: Leg pain, left Fall from standing Qualifiers: Encounter type: initial encounter Qualified Code(s): W19.XXXA - Unspecified fall, initial encounter Condition: Good Disposition: HOME, SELF-CARE Instructions: Leg Pain Nonspecific ([facility]) Additional Instructions: You have x-ray findings concerning for possible quadriceps avulsion. You have been referred to orthopedics. Please aloe up with them in the next 3 to 5 days for reevaluation. Referrals: TRINITY HAMILTON MD [ACTIVE PROVISIONAL STAFF] - Follow up in 3-5 days
[2018-12-21 14:30] VITALS: BP 135/76
--- NOTE | 2018-12-21 15:02 | RADIOLOGY REPORT (SQ) ---
EXAM DESCRIPTION: VENOUS UNILATERAL LOWER COMPLETED DATE/TIME: 12/21/2018 2:47 pm REASON FOR STUDY: left leg pain COMPARISON: 10/06/2018 TECHNIQUE: Dynamic and static dinh scale and color images acquired of the left leg venous system. Se lected spectral images acquired with additional compression and augmentation maneuvers. The contralat eral common femoral vein and saphenofemoral junction were also imaged. Images stored on PACS. LIMITATIONS: None. FINDINGS: COMMON FEMORAL: Normal phasicity, compression and augmentation. No visualized echogenic ma terial on dinh scale. No defects on color images. FEMORAL: Normal compression and augmentation. No visualized echogenic material on dinh scale. No defe cts on color images. POPLITEAL: Normal compression, augmentation. No visualized echogenic material on dinh scale. No defec ts on color images. CALF VESSELS: Normal compression, augmentation. No visualized echogenic material on dinh scale. No de fects on color images. GSV and SSV: Normal compression, augmentation. No visualized echogenic material on dinh scale. No def ects on color images. ANY DEEP VENOUS INSUFFICIENCY: Not evaluated. ANY EVIDENCE OF POPLITEAL CYST: No. OTHER: No other significant finding. CONTRALATERAL COMMON FEMORAL VEIN AND SAPHENOFEMORAL JUNCTION: Normal phasicity, compression and augmentation. No visualized echogenic material on dinh scale. No de fects on color images. IMPRESSION: NO EVIDENCE DVT OR SVT IN THE LEFT LEG. TECHNICAL DOCUMENTATION: JOB ID: [id number] [employer]- All Rights Reserved Reading location - IP/workstation name: [email or web address]
== END 2018-12-21 14:26 | disposition home or self-care (01) ==
LOC: ER 11:28
DX: M79.605 Pain in left leg (principal); M25.562 Pain in left knee; M25.572 Pain in left ankle and joints of left foot; M79.89 Other specified soft tissue disorders; W19.XXXA Unspecified fall, initial encounter; I10 Essential (primary) hypertension
CPT/HCPCS: 93971; 99283

== ENCOUNTER 2019-08-02 05:39 | Day surgery (SDC) | payer MEDICARE, OTHER ==
[2019-06-27 11:32] LABS: HEMATOCRIT 38.6 % (36.0-47.0); HEMOGLOBIN 13.6 g/dL (12.0-15.5); MEAN CORPUSCULAR HEMOGLOBIN 33.6 pg (27.0-33.4); MEAN CORPUSCULAR HGB CONC 35.3 g/dL (32.0-36.0); MEAN CORPUSCULAR VOLUME 95 fl (80-97); PLATELET COUNT 241 10^3/uL (150-450); RED BLOOD COUNT 4.05 10^6/uL (3.72-5.28); RED CELL DISTRIBUTION WIDTH 14.8 % (11.5-14.0); WHITE BLOOD COUNT 6.8 10^3/uL (4.0-10.5)
[2019-06-27 11:45] LABS: ANION GAP 5 (5-19); BLOOD UREA NITROGEN 14 mg/dL (7-20); CALCIUM 8.6 mg/dL (8.4-10.2); CARBON DIOXIDE 29 mmol/L (22-30); CHLORIDE 104 mmol/L (98-107); GLUCOSE 97 mg/dL (75-110); POTASSIUM 4.3 mmol/L (3.6-5.0)
--- NOTE | 2019-07-30 14:59 | EKG REPORT ---
SEVERITY:- ABNORMAL ECG - SINUS RHYTHM PROBABLE ANTEROSEPTAL INFARCT, AGE INDETERM : Confirmed by: Vera Carver MD 30-Jul-2019 14:58:55
[~2019-08-02 05:39] MED LIST: CEFAZOLIN 2 GM/D5W RTU 2 GM/50 ML RTUPB IV PRN
[2019-08-02] MEDS ORDERED: CEFAZOLIN 2 GM/D5W RTU 2 GM/50 ML RTUPB IV ONE (05:43)
[2019-08-02] MEDS ORDERED: MORPHINE SULFATE 10 MG/ML INJ ONE (06:43)
[2019-08-02] MEDS ORDERED: FENTANYL CITRATE INJ/PF 250 MCG/5 ML AMPULE ONE (06:43)
[2019-08-02] MEDS ORDERED: MIDAZOLAM 2 MG/2 ML INJ ONE (06:43)
[2019-08-02] MEDS ORDERED: FENTANYL CITRATE INJ/PF 100 MCG/2 ML AMPUL ONE ×2 (06:43→09:33)
[2019-08-02] MEDS ORDERED: PROPOFOL INJ 200 MG/20 ML VIAL IV ONE (06:44)
[2019-08-02] MEDS ORDERED: POTASSI CL 20 MEQ/50 ML RIDER 20 MEQ/50 ML RTUPB IV ONE (07:57)
[2019-08-02] MEDS ORDERED: POTASSIUM CHLORIDE 20 MEQ/50 ML RTU IV SCH (08:15)
[2019-08-02] MEDS ORDERED: FENTANYL CITRATE INJ/PF 100 MCG/2 ML AMPUL IV PRN ×3 (08:28)
[2019-08-02] MEDS ORDERED: MORPHINE SULFATE 10 MG/ML INJ IV PRN (08:28)
[2019-08-02] MEDS ORDERED: DIPHENHYDRAMINE HCL 50 MG/ML VIAL IV PRN (08:28)
[2019-08-02] MEDS ORDERED: PROMETHAZINE HCL INJ 25 MG/1 ML VIAL IV PRN ×2 (08:28)
[2019-08-02] MEDS ORDERED: MEPERIDINE HCL/PF INJ 25 MG/1 ML DISP.SYRIN IV PRN (08:28)
[2019-08-02] MEDS ORDERED: BUPIVACAINE HCL 0.25% /EPINEPHRINE INJ/PF 30 ML SDV ONE (08:56)
[2019-08-02] MEDS ORDERED: PROMETHAZINE HCL INJ 25 MG/1 ML VIAL ONE (09:22)
--- NOTE | 2019-08-02 09:29 | Operative Report ---
Nonrecallable Operative Report DATE OF SURGERY: 08/02/19 PREOPERATIVE DIAGNOSIS: Abdominal pain POSTOPERATIVE DIAGNOSIS: Abdominal pain OPERATION: Colonoscopy with cecal biopsy diagnostic laparoscopy esophagogastroduodenoscopy with biopsy SURGEON: GOSIA COELHO 1ST FINISHING FRAME RUNNER: GENE BRYSON ANESTHESIA: GA TISSUE REMOVED OR ALTERED: Esophageal biopsy and cecal biopsy COMPLICATIONS: None ESTIMATED BLOOD LOSS: 10 cc INTRAOPERATIVE FINDINGS: See note PROCEDURE: Patient was brought to the operating room awake alert in stable condition placed on the operative table supine position induced under general anesthesia and intubated. After appropriate timeout site verification the procedure commenced. The patient was placed in a left lateral decubitus position and we began the colonoscopy. The Olympus colonoscope was passed into the rectum and easily traversed the distal rectum into the sigmoid colon and then advanced up the descending colon to the splenic flexure then into the transverse colon hepatic flexure and then down into the cecum. Upon reaching the cecum we noted that the cecal mucosa appeared to be pale and slightly inflamed and therefore biopsy was obtained. We then slowly withdrew the scope and in the ascending colon there was a small diminutive polyp that was cold snare removed. Sent for biopsy. We then traversed the ascending colon slowly examining the wynne and noted no other evidence of mucosal abnormalities. As we progressed through the hepatic flexure and transverse colon splenic flexure we noted no other abnormalities. Scope was then slowly withdrawn down the descending colon and sigmoid colon there were multiple diverticuli noted in the descending colon and sigmoid colon. Scope was then slowly withdrawn. The patient was then placed in the prone position the abdomen was prepped and draped in usual sterile fashion. A varies needle was placed at Gomez's point in the left upper quadrant and the abdomen was insufflated with 6 L of CO2 gas. A supraumbilical 10 mm incision was made with a 15 blade and a 10 mm port placed in the abdominal cavity intra- abdominal visualization revealed no evidence of Veress needle or trocar injury. Two 5 mm left-sided abdominal ports were placed under direct vision. The patient was then placed in Trendelenburg. We noted some adhesions of omentum to the anterior abdominal wall from the previous laparotomy incision these were taken down with the harmonic scalpel. There was also some adhesions between the cecum and the ascending colon and the anterior abdominal wall which were loose and these were taken down with LigaSure device. The pelvis was examined and and noted no other evidence of abnormalities because the patient previously had a CT scan consistent with a possible mass in the cecum we examined this extensively. I mobilized the cecum along the peritoneal reflection to bring it the lateral wall easily into view. I examined entire cecum and the last 20 cm of the terminal ileum there was some significant to lobular fatty tissue that was heaped up up on the cecum it was not creeping. However there were lobules that may have been mistaken on the CT scan for cecal mass. She did not have an appendix. We examined it extensively I identified the fold of Treves and noted no evidence of appendix. I ran the small bowel to about 50 cm proximally noted no evidence of a Meckel's. At this point because there was no masses that I could identify the cecum laparoscopically or endoscopically I elected not to perform any type of other resection. We then placed the patient in reverse Trendelenburg to examine the upper abdomen the spleen was seen and examined and it appeared to be normal slightly enlarged but no evidence of any lobulations or mass. When we completed examination the spleen elected in the epigastrium and noted no other evidence of abnormality in the lesser curvature of the greater curvature of the stomach. We then with withdrew the scope and reduce the pneumoperitoneum we closed the supraumbilical 10 mm port site defect with 0 Vicryl and closed with 3 skin incisions with 4-0 Biosyn and Steri-Strips completed the procedure. We then commenced with the upper esophagogastroduodenoscopy. The Olympus gastroscope was passed into the posterior pharynx and easily traversed the upper esophageal sphincters into the esophagus we then entered the stomach fairly easily without evidence of stricture formation at the distal esophagus the body of the stomach was examined and it appeared to be normal traversed the stomach into the antrum identify the pylorus and intubated the pylorus I passed the scope about 20 cm into the duodenum and examined the duodenum there was no evidence of any mucosal abnormalities in the duodenum we slowly withdrew the scope there was no ulcerations in the duodenal bulb. There was no other evidence of ulcerations in the distal antrum or pylorus. We retroflexed the scope and she noted she had a moderate sized hiatal hernia. The fundus appeared to be normal. We slowly withdrew the scope and I noted that her distal esophagus appeared to be quite inflamed and slightly friable I obtained a biopsy. Scope was then slowly withdrawn. This completed the procedure the patient was awakened in the operating room extubated transferred recovery stable condition. DAVID Campbell was present for the entire procedure for help with wound retraction wound closure.
--- NOTE | 2019-08-02 09:30 | Discharge Summary ---
Discharge Summary (SDC) - Discharge Final Diagnosis: Abdominal pain Date of Surgery: 08/02/19 Discharge Date: 08/02/19 Condition: Good Treatment or Instructions: Resume daily activities and diet Referrals: DEJAN CAPPS MD [Primary Care Provider] - Discharge Diet: As Tolerated Discharge Activity: Activity As Tolerated - Patient is to follow-up with me in surgical clinic in 10 to 14 days Report the Following to Your Physician Immediately: Shortness of Breath, Fever over 101 Degrees, Unusual Bleeding
[2019-08-02] MEDS ORDERED: OXYCODONE-ACETAMINOPHEN 5-325 MG TABLET ONE (10:19)
[2019-08-02] MEDS ORDERED: OXYCODONE-ACETAMINOPHEN 5-325 MG TABLET PO PRN (10:31)
[2019-08-02 11:42] VITALS: BP 119/72
[2019-08-02] MEDS ORDERED: NEOSTIGMINE METHYLSULFATE 10 MG/10 ML VIAL ONE (14:52)
[2019-08-02] MEDS ORDERED: ONDANSETRON HCL INJ/PF 4 MG/2 ML SDV ONE (14:52)
[2019-08-02] MEDS ORDERED: DEXAMETHASONE SOD PHOSPHATE INJ 4 MG/1 ML VIAL ONE (14:52)
[2019-08-02] MEDS ORDERED: SUCCINYLCHOLINE CHLORIDE INJ 200 MG/10 ML VIAL ONE (14:52)
[2019-08-02] MEDS ORDERED: GLYCOPYRROLATE 1 MG/5 ML VIAL ONE (14:52)
[2019-08-02] MEDS ORDERED: ROCURONIUM BROMIDE INJ 50 MG/5 ML VIAL IV ONE (14:52)
== END 2019-08-02 11:35 | disposition home or self-care (01) ==
LOC: OROUT 05:39
PROVIDERS: ATTEND Surgery
DX: D12.0 Benign neoplasm of cecum (principal); K44.9 Diaphragmatic hernia without obstruction or gangrene; K52.9 Noninfective gastroenteritis and colitis, unspecified; K57.30 Diverticulosis of large intestine without perforation or abscess without bleeding; K66.0 Peritoneal adhesions (postprocedural) (postinfection); K20.9 Esophagitis, unspecified; Z85.048 Personal history of other malignant neoplasm of rectum, rectosigmoid junction, and anus; Z03.818 Encounter for observation for suspected exposure to other biological agents ruled out; E89.0 Postprocedural hypothyroidism; M06.9 Rheumatoid arthritis, unspecified; Z88.5 Allergy status to narcotic agent; Z91.041 Radiographic dye allergy status; Z79.899 Other long term (current) drug therapy; Z79.891 Long term (current) use of opiate analgesic
CPT/HCPCS: 93005; 36415 ×2; 84132; 85027; 80048; 88305 ×2; 93010; 00790; 49320; 43239; 45380; U0003 ×2; J2250; J3490 ×3; J1100; J3010 ×2; J2710; A9270; J2550; J0330; J2405; J3480; J2704; J0690; C9803; 790; 87635; 88304; J2270

== ENCOUNTER → 2019-09-12 | Outpatient (CLI) | payer MEDICARE, OTHER ==
--- NOTE | 2019-09-12 16:14 | RADIOLOGY REPORT (SQ) ---
EXAM DESCRIPTION: CAROTID DOPPLER IMAGES COMPLETED DATE/TIME: 09/12/2019 3:58 pm REASON FOR STUDY: AMAUROSIS FUGAX G45.3 AMAUROSIS FUGAX COMPARISON: None. TECHNIQUE: Grayscale ultrasound, Doppler velocity and spectra, and color Doppler images acquired of the extra-cranial carotid and vertebral arteries. Images stored on PACS. LIMITATIONS: None. FINDINGS: RIGHT CAROTID CCA Velocities: Within normal limits. ICA Velocities Peak systolic 0.67 m/s. End diastolic 0.20 m/s. Proximal ICA/CCA peak systolic ratio 1.3. Spectra normal. No significant plaque. LEFT CAROTID CCA Velocities: Within normal limits. ICA Velocities Peak systolic 0.69 m/s. End diastolic 0.29 m/s. Proximal ICA/CCA peak systolic ratio 1.0. Spectra normal. No significant plaque. VERTEBRAL ARTERIES: Antegrade flow. Normal waveforms. SUBCLAVIAN ARTERIES: Not imaged. OTHER: No other significant finding. IMPRESSION: NO HEMODYNAMICALLY SIGNIFICANT STENOSIS. COMMENT: Quality ID #[id number]: Velocity criteria are extrapolated from the diameter data as defined by t he Society of Radiologists in Ultrasound Consensus Conference. Radiology 2003: 229; 340-346. TECHNICAL DOCUMENTATION: JOB ID: [id number] 2010 [employer]- All Rights Reserved Reading location - IP/workstation name: [email or web address]
== END ==
LOC: SP 13:55
PROVIDERS: ATTEND Ophthalmology
DX: G45.3 Amaurosis fugax (principal)
CPT/HCPCS: 93880